=== PATIENT | male | born 1960 | race Caucasian/White ===

== ENCOUNTER 2017-03-26 06:53 | Day surgery (SDC) | payer OTHER ==
[2017-03-23 11:28] VITALS: BMI 31.5
[~2017-03-26 06:53] MED LIST: LACTATED RINGERS 1,000 ML IV SCH
[2017-03-26 07:17] VITALS: RESP 16; TEMP 98
[2017-03-26] MEDS ORDERED: LIDOCAINE 1% 20 ML VIAL (10MG/ML) FOR IV START INTRADERMA ONE (07:33)
[2017-03-26] MEDS ORDERED: LIDOCAINE 1% INJ 10MG/ML (20 ML MDV) ONE (08:01)
[2017-03-26] MEDS ORDERED: PROPOFOL 10 MG/ML 20 ML VIAL IV ONE (08:01)
--- NOTE | 2017-03-26 08:08 | P.HPIHPCON ---
History of Present Illness H&P Date: 03/26/17 Chief Complaint: History of colon polyps, epigastric pain and reflux Patient is a 56-year-old male who has had a previous colonoscopy and have colon polyps at that time. He is not on any change in bowel movements any weight loss any nausea or vomiting. He does however recall having significant amount of epigastric discomfort with reflux going up into his throat and sinuses. This is an intermittent event, and there is no association and no aggravating or relieving factors. he has not had any egd is done in the past she's had colonoscopy done once in the past for his colon polyps. Consent for Procedure: I have explained the operation/procedure to the patient, including the risks, benefits, side effects, alternative therapies (including not receiving the proposed treatment or service), the likelihood of the patient achieving his/her goals, and potential recuperation problems for the procedure/sedation/analgesia , as well as any blood products, if indicated. I also explained to the patient the risks, benefits and side effects of the alternatives, as well as the risks related to not receiving the proposed procedure, care, treatment, or services. - Constitutional Constitutional: Denies chills, Denies fever - EENT Eyes: denies blurred vision, denies pain Ears, nose, mouth and throat: Denies headache, Denies sore throat - Cardiovascular Cardiovascular: Denies chest pain, Denies shortness of breath - Respiratory Respiratory: Denies cough, Denies 7 - Gastrointestinal Gastrointestinal: Denies abdominal pain, Denies diarrhea, Denies nausea, Denies vomiting - Genitourinary (Female) Genitourinary: Denies dysuria, Denies hematuria - Musculoskeletal Musculoskeletal: Denies myalgias - Integumentary Integumentary: Denies pruritus, Denies rash - Neurological Neurological: Denies numbness, Denies weakness - Endocrine Endocrine: Denies fatigue, Denies weight change Past Medical History Past Medical History: GERD/Reflux, Hypertension History of Any Multi-Drug Resistant Organisms: None Reported Past Surgical History: Hernia Repair, Orthopedic Surgery, Tonsillectomy Additional Past Surgical History / Comment(s): ORIF rt ankle, Past Anesthesia/Blood Transfusion Reactions: No Reported Reaction Smoking Status: Former smoker - Past Family History Mother Family Medical History: No Reported History Medications and Allergies Home Medications Medication Instructions Recorded Confirmed Type ALPRAZolam [Xanax] 1 mg PO TID 03/23/17 03/26/17 History Aspirin [Adult Low Dose Aspirin EC] 81 mg PO DAILY 03/23/17 03/26/17 History Carvedilol [Coreg] 25 mg PO QAM 03/23/17 03/26/17 History Cyclobenzaprine [Flexeril] 10 mg PO TID 03/23/17 03/26/17 History Fish Oil/Dha/Epa [Fish Oil 1,200 1 each PO QAM 03/23/17 03/26/17 History mg Fish Oil] Hydrocodone/Acetaminophen [[place] 1 tab PO Q6HR PRN 03/23/17 03/26/17 History 7.5-325] Lisinopril 20 mg PO HS 03/23/17 03/26/17 History Multivitamins, Thera [Multivitamin 1 tab PO DAILY 03/23/17 03/26/17 History (formulary)] traMADol HCL [Ultram] 100 mg PO HS 03/23/17 03/26/17 History Allergies Allergy/AdvReac Type Severity Reaction Status Date / Time No Known Allergies Allergy Verified 03/26/17 07:17 Surgical - Exam Vital Signs Temp Pulse Resp BP Pulse Ox 98.0 F 115 H 16 136/98 97 03/26/17 07:16 03/26/17 07:16 03/26/17 07:16 03/26/17 07:16 03/26/17 07:16 - General well developed, well nourished, no distress - Eyes PERRL, normal ocular movement, no icteric, no deviation - ENT normal pinna, normal nares, normal mucosa - Neck no masses, no bruits, trachea midline - Respiratory normal expansion, normal respiratory effort - Cardiovascular Rhythm: regular - Abdomen Abdomen: soft, non tender, no masses, no rigid, no rebound, no distended Assessment and Plan (1) Colon polyps Status: Acute (2) Epigastric pain Status: Acute (3) GERD (gastroesophageal reflux disease) Status: Acute Plan: I have had a detailed discussion with the patient and have recommended an EGD and a colonscopy. Risks and benefits were explained. He understands and is willing to proceed.
--- NOTE | 2017-03-26 08:48 | P.OP ---
Date of Procedure: 03/26/17 Preoperative Diagnosis: History of colon polyps EPigastric pain and reflux Postoperative Diagnosis: Diverticulosis Colon polyps Mild gastritis Duodentitis Mild reflux esophagitis Hiatal hernia Procedure(s) Performed: EGD with biopsy using cold biopsy forceps Colonoscopy with biopsy using cold biopsy forceps Implants: Anesthesia: TARYN Surgeon: Brandon Cano Pathology: other Condition: stable Disposition: PACU Indications for Procedure: Screening for colon cancer Epigastric pain Operative Findings: Description of Procedure: A timeout was performed to verify the correct patient and correct procedure. Patient was on continuous vitals and pulse ox monitoring throughout the procedure. He was placed in lateral decubitus position and a bite block was inserted. A well-lubricated endoscope was passed orally. The esophagus was intubated without difficulty. The EGD was passed beyond the pylorus into the first and second portion of the duodenum. There was mild duodenitis. A small polypoid lesion was biopsied in the 2nd part of the duodenum witha cold biopsy forceps. Biopsies were taken from the antrum using cold biopsy forceps. The scope was retroflexed. Small hiatal was noted which is [place] II. No mass, ulcer or bleeding noted within the gastric lumen. The GE junction is measured at 40 cm from the incisors . These were also taken from the body and the GE junction in the lower esophagus There was mild reflux esophagitis. The endoscope was gradually withdrawn. No abnormality identified in the esophagus. Perianal examination revealed external skin tags. Digital rectal examination was performed. A well-lubricated endoscope was passed per rectally and was gradually advanced beyond the sigmoid colon, splenic flexure, transverse colon, hepatic flexure and cecum. The ileocecal valve was visualized. Then extensive diverticulosis noted without any evidence of diverticulitis. Scope was gradually withdrawn inspecting all the mucosal surfaces. A polyp was seen in the ascending colon and sigmoid colon at 40 cm and biopsied with the help of a cold biopsy forceps. Bowel prep was good. No other polyps or masses noted. Rectum was narrow and was unable to retroflex. The scope was gradually withdrawn. Patient tolerated the procedure well and was taken to post anesthesia care unit in stable condition. Plan - Discharge Summary New Discharge Prescriptions: No Action Lisinopril 20 mg PO HS Carvedilol [Coreg] 25 mg PO QAM ALPRAZolam [Xanax] 1 mg PO TID Hydrocodone/Acetaminophen [[place] 7.5-325] 1 tab PO Q6HR PRN PRN Reason: Pain traMADol HCL [Ultram] 100 mg PO HS Cyclobenzaprine [Flexeril] 10 mg PO TID Aspirin [Adult Low Dose Aspirin EC] 81 mg PO DAILY Multivitamins, Thera [Multivitamin (formulary)] 1 tab PO DAILY Fish Oil/Dha/Epa [Fish Oil 1,200 mg Fish Oil] 1 each PO QAM Discharge Medication List ALPRAZolam [Xanax] 1 mg PO TID 03/23/17 [History] Aspirin [Adult Low Dose Aspirin EC] 81 mg PO DAILY 03/23/17 [History] Carvedilol [Coreg] 25 mg PO QAM 03/23/17 [History] Cyclobenzaprine [Flexeril] 10 mg PO TID 03/23/17 [History] Fish Oil/Dha/Epa [Fish Oil 1,200 mg Fish Oil] 1 each PO QAM 03/23/17 [History] Hydrocodone/Acetaminophen [[place] 7.5-325] 1 tab PO Q6HR PRN 03/23/17 [History] Lisinopril 20 mg PO HS 03/23/17 [History] Multivitamins, Thera [Multivitamin (formulary)] 1 tab PO DAILY 03/23/17 [History ] traMADol HCL [Ultram] 100 mg PO HS 03/23/17 [History] Follow up Appointment(s)/Referral(s): Brandon Cano MD [STAFF PHYSICIAN] - As Needed Patient Instructions/Handouts: *[facility] - (Anesthesia) Endoscopy Discharge Instructions, Colonoscopy (DC), Upper Endoscopy (DC)
[2017-03-26 09:16] VITALS: BP 133/80; PULSE 102
== END 2017-03-26 09:49 | disposition home or self-care (01) ==
LOC: ORWHC2ENDO 06:53
PROVIDERS: ATTEND Surgery
DX: Z12.11 Encounter for screening for malignant neoplasm of colon (principal); K21.0 Gastro-esophageal reflux disease with esophagitis; K63.5 Polyp of colon; K29.70 Gastritis, unspecified, without bleeding; K57.30 Diverticulosis of large intestine without perforation or abscess without bleeding; K44.9 Diaphragmatic hernia without obstruction or gangrene; K64.4 Residual hemorrhoidal skin tags; K29.80 Duodenitis without bleeding; Z86.010 Personal history of colon polyps; G89.4 Chronic pain syndrome; I10 Essential (primary) hypertension; G47.33 Obstructive sleep apnea (adult) (pediatric); F41.9 Anxiety disorder, unspecified; F32.9 Major depressive disorder, single episode, unspecified; Z79.82 Long term (current) use of aspirin; Z79.891 Long term (current) use of opiate analgesic; Z79.899 Other long term (current) drug therapy; Z87.891 Personal history of nicotine dependence
CPT/HCPCS: 88305; 45380; 43239; J2001; J2704

== ENCOUNTER → 2020-04-17 | Outpatient (CLI) | payer OTHER ==
--- NOTE | 2020-04-17 19:24 | MR ---
EXAMINATION TYPE: MR lumbar spine wo con DATE OF EXAM: 04/17/2020 COMPARISON: None HISTORY: Intervertebral disc disorders, radiculopathy lumbar, pain center of lower back and left leg CONTRAST: 0 mL intravenous Gadavist. TECHNIQUE: Multiplanar, multisequence images of the lumbar spine were acquired. FINDINGS: L5-S1: Minimal residual disc bulge has anterior thecal sac contact and exiting nerve root sleeve cont act. No displacement or compression is evident. L4-L5: Endplate changes are present. There is disc space narrowing. There is moderate right and moder ate to severe left foraminal stenosis. Correlate with radicular symptoms. Broad-based disc bulge has anterior thecal sac flattening. On sagittal T2-weighted images there is some subtle increased signal within the inferior posterior disc space which could represent a small annular tear Ligamentum flavum laxity is present on the left with posterior lateral thecal sac compression. L3-L4: Broad-based disc bulge is present with anterior thecal sac flattening. Mild facet hypertrophy is present. There is moderate bilateral foraminal stenosis. L2-L3: No significant disc herniation or disc bulge is evident. Facet hypertrophy is present greater on the right. Disc extension into the right foramen is causing moderate narrowing. Mild narrowing of the left foramen is present. L1-L2: Mild disc space narrowing is present. No significant disc bulge is evident. There is some subl igamentous disc herniation with disc extension in the left paracentral spinal canal with mild anterio r thecal sac compression. AP spinal canal stenosis is not present. Neural foramen are patent. Mild fa cet degenerative changes are present T12-L1: Minimal disc bulge is present with anterior thecal sac contact. No spinal canal stenosis pres ent or neural foraminal stenosis. Cord terminates at the L1 level. IMPRESSION: 1. Foraminal stenosis greatest at the L4-5 level on the left. Correlate with the radicular symptoms. Additional moderate areas of foraminal narrowing are present. 2. Facet degenerative changes. 3. Degenerative disc changes with loss of disc height L4-5 and to a lesser degree L3-4. 4. Left paracentral disc herniation extending from the L1-2 level may be present with mild anterior t hecal sac compression.
== END | disposition home or self-care (01) ==
LOC: RADMRIMAIN 12:17
PROVIDERS: ATTEND Family Medicine
DX: M48.061 Spinal stenosis, lumbar region without neurogenic claudication (principal); M51.26 Other intervertebral disc displacement, lumbar region; M47.26 Other spondylosis with radiculopathy, lumbar region
CPT/HCPCS: 72148

== ENCOUNTER 2020-04-27 07:45 | Day surgery (SDC) | payer OTHER ==
[2020-04-26 08:19] VITALS: BMI 28.4
[2020-04-27 08:06] VITALS: RESP 16; TEMP 98.3
[2020-04-27] MEDS ORDERED: LIDOCAINE 1% (10MG/ML) FOR IV START INTRADERMA ONE (08:16)
[2020-04-27] MEDS: LACTATED RINGERS 1,000 ML IV SCH ×2 (08:18→08:43)
[2020-04-27] MEDS ORDERED: PROPOFOL 10 MG/ML 20 ML VIAL IV ONE (08:46)
--- NOTE | 2020-04-27 09:00 | P.PCN ---
Date of Procedure: 04/27/20 Procedure(s) Performed: BRIEF HISTORY: Patient is a 59-year-old pleasant male scheduled for an elective colonoscopy as a part of evaluation of Hemoccult-positive stool. PROCEDURE PERFORMED: Colonoscopy. With biopsy PREOPERATIVE DIAGNOSIS: Hemoccult-positive stool. IV sedation per Anesthesia. PROCEDURE: After informed consent was obtained, the patient, was brought into the endoscopy unit. IV sedation was administered by Anesthesia under continuous monitoring. Digital rectal examination was normal. Initially the Olympus CF-160 flexible video colonoscope was then inserted in the rectum, gradually advanced into the cecum without any difficulty. Careful examination was performed as the scope was gradually being withdrawn. Ileocecal valve and the appendiceal orifice were visualized and appeared normal. Prep was excellent. Mucosa of the cecum, ascending colon, appeared normal. In the transverse proximal transverse colon there was a 2 cm superficial ulcer identified that was biopsied. There was no active bleeding. The rest of the transverse colon, descending colon, sigmoid colon, and rectum appeared normal. Moderate sigmoid diverticula seen. Retroflexion was performed in the rectum and small internal hemorrhoids were seen. The patient tolerated the procedure well. IMPRESSION: Isolated 2 cm superficial proximal transverse colon also status post biopsy Moderate sigmoid diverticulosis Small internal hemorrhoids RECOMMENDATIONS: Findings of this examination were discussed with the patient as well as his family. He was advised to follow with the biopsy results. He can have a repeat screening colonoscopy in 10 years.
[2020-04-27 09:16] VITALS: BP 146/85; PULSE 77
== END 2020-04-27 09:28 | disposition home or self-care (01) ==
LOC: ORWHC2ENDO 07:45
PROVIDERS: ATTEND Internal Medicine Gastroenterology
DX: K63.3 Ulcer of intestine (principal); F32.9 Major depressive disorder, single episode, unspecified; I10 Essential (primary) hypertension; F41.9 Anxiety disorder, unspecified; K57.30 Diverticulosis of large intestine without perforation or abscess without bleeding; K64.8 Other hemorrhoids; Z79.899 Other long term (current) drug therapy
CPT/HCPCS: 88305; 45380; J2704

== ENCOUNTER → 2020-05-21 | Outpatient (CLI) | payer OTHER ==
--- NOTE | 2020-05-22 07:38 | MR ---
EXAMINATION TYPE: MR cspine/tspine wo con DATE OF EXAM: 05/21/2020 COMPARISON: NONE HISTORY: Neck/mid back pain, BUE radic TECHNIQUE: Multiplanar, multisequence imaging of cervical and thoracic spine are performed without co ntrast FINDINGS: C-SPINE: FINDINGS: Sagittal images of the cervical spine show the craniocervical junction to appear within nor mal limits. The cervical and upper thoracic spinal cord is normal in caliber and signal. Reversal of normal cervical curvature centered at C3-C4 level noted. The vertebral body heights are normal. Jamie rly moderate multilevel disc space narrowing along with moderate anterior spurring C3-C4 through C6-C 7 levels. Grade 1 retrolisthesis C3 on C4, C4 on C5, C5 on C6, and to lesser degree C6 on C7. Heterog eneous Modic type II endplate changes anteriorly C3-C4 level and posteriorly at C5-C6 level. Axial images at C2-C3 level show left-sided uncovertebral facet degenerative change causing asymmetri c mild left-sided neural foraminal narrowing. Axial images at C3-C4 level show spondylolisthesis along with mild broad-based posterior disc protrus ion and uncovertebral facet degenerative changes, there is some effacement of anterior thecal sac and moderate to severe left greater than right bilateral neural foraminal narrowing. Axial images at the C4-C5 level show spondylolisthesis with tiny central disc protrusion and uncovert ebral facet degenerative changes, there is mild effacement anterior thecal sac and moderate to advanc ed bilateral neural foraminal narrowing. Axial images at the C5-C6 level show spondylolisthesis and marginal spurring minimally effacing anter ior thecal sac and causing moderate to advanced bilateral neural foraminal narrowing. Axial images at C6-C7 level shows spondylolisthesis with broad-based left paracentral disc protrusion and marginal spurring effacing anterior thecal sac and causing moderate to advanced bilateral neural foraminal narrowing. Axial images at C7-T1 level appear within normal limits. IMPRESSION: Loss of normal cervical curvature with multilevel degenerative changes and spondylolisthe sis greatest at the C3-C4 through the C6-C7 levels as detailed above. T-SPINE: Spinal cord shows normal course, caliber, and signal as it courses the thoracic spine. Vertebral bod y heights and alignment are satisfactory. This space heights are fairly well maintained. Mild to mod erate multilevel anterior lateral spurring. Tiny posterior disc herniations noted effacing the anteri or thecal sac at T6-T7 through the T10-T11 levels. Additional disc herniation T12-L1 level noted mild ly effacing the anterior thecal sac. Small hemangioma central T8 vertebra incidentally noted. Review of the axial images shows confirms no additional significant disc herniations with multilevel small paracentral disc protrusions in the mid to lower thoracic spine effacing ventral lateral thecal sac. Visualized thorax and upper abdomen show no suspicious abnormality. Paraspinal muscle bulk is m aintained. IMPRESSION: Multilevel small posterior disc herniations mid to lower thoracic spine on background mil d to moderate multilevel anterior and lateral spurring.
== END | disposition home or self-care (01) ==
LOC: RADMRIMAIN 16:02
PROVIDERS: ATTEND Family Medicine
DX: M51.24 Other intervertebral disc displacement, thoracic region (principal); M54.2 Cervicalgia
CPT/HCPCS: 72141; 72146